=== PATIENT | male | born 1995 | race Two or more races ===

== ENCOUNTER 2022-08-07 23:12 | Emergency (ER) | payer OTHER ==
[~2022-08-07] VITALS: Ht 167.6 cm; Wt 67.1 kg
== END 2022-08-08 02:55 | disposition home or self-care (01) ==
LOC: ER 23:12
DX: S50.01XA Contusion of right elbow, initial encounter (principal); S90.01XA Contusion of right ankle, initial encounter; W01.0XXA Fall on same level from slipping, tripping and stumbling without subsequent striking against object, initial encounter; Y93.89 Activity, other specified; Y92.59 Other trade areas as the place of occurrence of the external cause; Y99.8 Other external cause status; Z91.013 Allergy to seafood